=== PATIENT | male | born 1995 | race Two or more races ===

== ENCOUNTER 2017-08-12 11:04 | Emergency (ER) | payer OTHER ==
[~2017-08-12] VITALS: Ht 170.2 cm; Wt 86.6 kg
[~2017-08-12 11:04] MED LIST: OSEL75CA PO; TUSSI PRES-B L120 M1 PO
== END 2017-08-12 12:58 | disposition home or self-care (01) ==
LOC: ER 11:04
DX: R11.10 Vomiting, unspecified (principal)

== ENCOUNTER 2018-03-24 19:40 | Emergency (ER) | payer OTHER ==
[~2018-03-24] VITALS: Ht 160 cm; Wt 86.2 kg
== END 2018-03-24 20:35 | disposition home or self-care (01) ==
LOC: ER 19:40
DX: H92.01 Otalgia, right ear (principal)

== ENCOUNTER 2021-09-14 15:12 | Emergency (ER) | payer OTHER ==
[~2021-09-14] VITALS: Ht 162.6 cm; Wt 84.4 kg
== END 2021-09-14 18:11 | disposition home or self-care (01) ==
LOC: ER 15:12
DX: A64 Unspecified sexually transmitted disease (principal); R21 Rash and other nonspecific skin eruption

== ENCOUNTER 2022-12-14 21:09 | Emergency (ER) | payer OTHER ==
[~2022-12-14] VITALS: Ht 160 cm; Wt 83.9 kg
== END 2022-12-15 00:11 | disposition home or self-care (01) ==
LOC: ER 21:09
DX: L81.0 Postinflammatory hyperpigmentation (principal)

== ENCOUNTER 2023-01-07 22:32 | Emergency (ER) | payer OTHER ==
[~2023-01-07] VITALS: Ht 170.2 cm; Wt 77.1 kg
== END 2023-01-08 03:20 | disposition left against medical advice (07) ==
LOC: ER 22:32
DX: Z53.21 Procedure and treatment not carried out due to patient leaving prior to being seen by health care provider (principal)

== ENCOUNTER 2023-05-25 20:46 | Emergency (ER) | payer OTHER ==
[~2023-05-25] VITALS: Ht 160 cm; Wt 88.5 kg
== END 2023-05-26 01:16 | disposition home or self-care (01) ==
LOC: ER 20:47
DX: J06.9 Acute upper respiratory infection, unspecified (principal); Z20.822 Contact with and (suspected) exposure to COVID-19